=== PATIENT | male | born 1970 | race Caucasian/White ===

== ENCOUNTER 2018-12-20 22:45 | Inpatient (IN) ==
[2018-12-20] MEDS ORDERED: ASPIRIN PO ONE (22:59)
--- NOTE | 2018-12-20 23:51 | EKG Report ---
Test Performed on : 12/20/2018 10:51:09 PM Test Reason : CHEST PAIN Blood Pressure : / mmHG Vent. Rate : 089 BPM Atrial Rate : 089 BPM P-R Int : 126 ms QRS Dur : 080 ms QT Int : 338 ms P-R-T Axes : 039 -22 000 degrees QTc Int : 411 ms Normal sinus rhythm. Voltage criteria for left ventricular hypertrophy Nonspecific ST abnormality Abnormal ECG When compared with ECG of 29-OCT-2008 08:54, Inverted T waves have replaced nonspecific T wave abnormality in Inferior leads Unconfirmed Result
[2018-12-20 23:52] LABS: BASO# 0.02 X1000 (0.0-0.2); BASO% 0.3 % (0.0-0.8); EOS# 0.24 X1000 (0.0-0.7); EOS% 3.2 % (0.0-10.0); HEMATOCRIT 43.9 % (42.0-52.0); LYMPH# 2.75 X1000 (1.2-3.4); LYMPH% 36.7 % (20.5-51.1); MCH 29.9 PG (27-31); MCHC 34.2 g/dL (33-37); MCV 87.5 FL (81-99); MONO# 0.99 X1000 (0.11-0.59); MONO% 13.2 % (1.7-9.3); NEUT% 46.6 % (42.2-75.2); PLT 287 X1000 (130-400); RBC 5.02 XMIL (4.7-6.1); RDW 14.1 % (11.5-14.5)
[2018-12-20 23:59] LABS: INR 0.98; PROTIME 13.1 Seconds (11.0-16.0); PTT 22.2 Seconds (22.3-41.8)
[2018-12-21 00:29] LABS: AGAP 11; ALB/GLOB RATIO 1.5; ALBUMIN 4.2 g/dL (3.5-5.0); ALKALINE PHOSPHATASE 43 U/L (32-122); BUN 21 mg/dL (8-22); CALCIUM 8.6 mg/dL (8.8-10.2); CHLORIDE 107 mmol/L (98-107); COSMO 281; CREATININE 0.7 mg/dL (0.7-1.2); ESTIMATED GFR > 60; GLUCOSE 102 mg/dL (70-104); GOT 41 U/L (10-34); GPT 22 U/L (10-44); POTASSIUM 5.4 mmol/L (3.5-5.1); SODIUM 139 mmol/L (136-145); TCO2 21 mmol/L (25-35); TOTAL BILIRUBIN 0.23 mg/dL (0.20-1.00)
[2018-12-21 00:30] LABS: CK PROFILE 395 U/L (24-204)
[2018-12-21 00:49] LABS: CK INDEX 0.5 (0.0-2.5)
--- NOTE | 2018-12-21 01:46 | PROVIDER DOCUMENTATION ---
This chart was entered by Angelina Chandra Scribe, acting as scribe for Ted Hawk MD. HPI-Chest Pain - General Chief Complaint: Chest Pain Stated Complaint: CHEST PAIN/SOB Time Seen by Provider: 12/20/18 23:32 Source: patient Allergies/Adverse Reactions: Patient Allergies Allergy/AdvReac Type Severity Reaction Status Date / Time No Known Allergies Allergy Verified 12/20/18 23:01 - History of Present Illness-CP Nature of Presenting Problem: 48 yowm c/o cp starting all of a sudden tonight. pain is mild in ed. pt has family hx of VT but has not had a VT. pt has no pcp. denies DM. pt is HTN in room. has had no stress test or echo. pt quit smoking 13 yrs ago but still uses tobacco chew. a&ox3, nontoxic in appearance, and obese. Location: reports: central Chest Pain Radiation: reports: no radiation Severity in ED: mild Onset/Duration: just prior to arrival Timing: improving Context/Activities at Onset: reports: none Similar Symptoms Previously?: No Review of Systems - Adult - REVIEW OF SYSTEMS - ADULT Constitutional: reports: no symptoms reported. denies: fever, fatique, night sweats Eyes: reports: no symptoms reported Ears, Nose, Mouth & Throat: reports: no symptoms reported Cardiovascular: reports: see HPI, chest pain. denies: heart murmur, irregular heart rate, orthopnea Respiratory: reports: no symptoms reported Gastrointestinal: reports: no symptoms reported. denies: diarrhea, nausea, vomiting Genitourinary: reports: no symptoms reported Musculoskeletal: reports: no symptoms reported. denies: back pain, joint pain, neck pain Integumentary: reports: no symptoms reported Neurological: reports: no symptoms reported Psychiatric: reports: no symptoms reported Endocrine: reports: no symptoms reported. denies: change in skin pigment, excessive sweating, goiter Hematologic/Lymphatic: reports: no symptoms reported Allergic/Immunologic: reports: no symptoms reported All Other Systems: Reviewed and Negative Past History - Adult - PAST MEDICAL HISTORY-ADULT Review of Records: reports: Old Records Reviewed, Nursing Assessment Review, Medications Reviewed, Social history reviewed & non-contributory. Major Childhood Illnesses: reports: denies history Cardiovascular: reports: denies history Respiratory: reports: denies history Gastrointestinal: reports: denies history Obstetrical/Gynecological: reports: denies history Genitourinary: reports: denies history Musculoskeletal: reports: denies history Neurological: reports: denies history Endocrine/Immune: reports: denies history Other Conditions: reports: denies history - IMMUNIZATION STATUS Childhood Immunizations: See Nurse Assessment Flu Vaccine: See Nurse Assessment - FAMILY HISTORY Family History: other (VT) - SOCIAL HISTORY Smoking: quit greater than 1 year, chew (1/2 can/daily) Provider spent 3-5 mins advising pt. on dangers of tobacco.: Discussed manners to quit use, and f/u contacts for add'l counseling. Substance Use: none/never Physical Exam-General - PHYSICAL EXAM-ADULT Initial Vital Signs Reviewed: Yes - CONSTITUTIONAL General Appearance: appears well, alert, no apparent distress, obese. negative: lethargic, slow to respond, obtunded - EYES Eyes: PERRL/EOMI, pink conjunctivae - HEAD, EARS, NOSE, MOUTH & THROAT HENMT: normocephalic/atraumatic, moist mucous membranes, normal ENT inspection - NECK Neck: non-tender, full range of motion, supple, normal inspection - RESPIRATORY Respiratory: chest non-tender, lungs clear, normal breath sounds - CARDIOVASCULAR Cardiovascular: normal peripheral pulses, regular rate, rhythm, no edema, no gallop, no JVD, no murmur, other (blood pressure 169/106 2352). negative: JVD, bradycardia, tachycardia - GASTROINTESTINAL (ABDOMEN) Abdominal Exam: normal bowel sounds, non tender, soft - LYMPHATIC Lymphatic: no adenopathy - MUSCULOSKELETAL Back Exam: normal inspection, no CVA tenderness, no vertebral tenderness Extremity: normal range of motion, non-tender, normal inspection, no pedal edema , no calf tenderness, normal capillary refill. negative: abnormal NV exam, calf tenderness, pulse deficit, pedal edema, slow capillary refill Peripheral Pulses: radial (R): 2+, radial (L): 2+ - SKIN Integumentary: normal color, normal turgor, warm/dry. negative: diaphoresis, pallor, swelling - NEUROLOGIC Neurologic: grossly normal, no motor/sensory deficits - PSYCHIATRIC Psych/Mental Status: normal mood/affect, normal thought content, normal thought process, oriented x 3 Progress - PLAN OF CARE/RESULTS Progress/Plan/Lab Results: Vital Signs - 8 hr 12/20/18 22:56 Temperature 98.3 F Pulse Rate 93 H Respiratory Rate 18 Blood Pressure 191/97 O2 Sat by Pulse Oximetry 97 Laboratory Results - last 24 hr 12/20/18 12/20/18 12/20/18 23:38 23:38 23:38 WBC 7.50 RBC 5.02 Hgb 15.0 Hct 43.9 MCV 87.5 MCH 29.9 MCHC 34.2 RDW Std Deviation 14.1 Plt Count 287 MPV 10.0 Immature Gran % (Auto) 0.0 Neut % (Auto) 46.6 Lymph % (Auto) 36.7 [place] % (Auto) 13.2 H Eos % (Auto) 3.2 Baso % (Auto) 0.3 Immature Gran # (Auto) 0.00 Neut # (Auto) 3.50 Lymph # (Auto) 2.75 [place] # (Auto) 0.99 H Eos # (Auto) 0.24 Baso # (Auto) 0.02 PT INR PTT (Actin FS) Sodium 139 Potassium 5.4 H Chloride 107 Carbon Dioxide 21 L Anion Gap 11 BUN 21 Creatinine 0.7 Estimated GFR/1.73 m2 > 60 BUN/Creatinine Ratio 30 Glucose 102 Calculated Osmolality 281 Calcium 8.6 L Total Bilirubin 0.23 AST 41 H ALT 22 Alkaline Phosphatase 43 Creatine Kinase 395 H Creatine Kinase Index 0.5 CK-MB (CK-2) 1.90 Troponin T Wma-[id number]-Yvatzmqdzpz Pept 4543 H Total Protein 7.0 Albumin 4.2 Globulin 2.8 Albumin/Globulin Ratio 1.5 12/20/18 12/20/18 23:38 23:38 WBC RBC Hgb Hct MCV MCH MCHC RDW Std Deviation Plt Count MPV Immature Gran % (Auto) Neut % (Auto) Lymph % (Auto) [place] % (Auto) Eos % (Auto) Baso % (Auto) Immature Gran # (Auto) Neut # (Auto) Lymph # (Auto) [place] # (Auto) Eos # (Auto) Baso # (Auto) PT 13.1 INR 0.98 PTT (Actin FS) 22.2 L Sodium Potassium Chloride Carbon Dioxide Anion Gap BUN Creatinine Estimated GFR/1.73 m2 BUN/Creatinine Ratio Glucose Calculated Osmolality Calcium Total Bilirubin AST ALT Alkaline Phosphatase Creatine Kinase Creatine Kinase Index CK-MB (CK-2) Troponin T < 0.010 Fhw-[id number]-[id number] Pept Total Protein Albumin Globulin Albumin/Globulin Ratio Orders Category Date Time Status Cardiac Monitoring DIRECTED Care 12/20/18 22:59 Active Oxygen Therapy- ED Nursing DIRECTED Care 12/20/18 22:59 Active Saline Loc NOW Care 12/20/18 22:59 Active CHEST-2 VIEWS [RAD] Stat Exams 12/20/18 22:59 Taken CBC WITH ELECTRONIC DIFF [HEME] Stat Lab 12/20/18 23:38 Completed CK PROFILE [SP CHEM] Stat Lab 12/20/18 23:38 Completed COMPREHENSIVE METABOLIC PANEL [CHEM] Stat Lab 12/20/18 23:38 Completed PRO B-NATRIURETIC PEPTIDE Stat Lab 12/20/18 23:38 Completed PROTIME WITH INR [COAG] Stat Lab 12/20/18 23:38 Completed PTT [COAG] Stat Lab 12/20/18 23:38 Completed TROPONIN T Stat Lab 12/20/18 23:38 Completed Aspirin Med 12/20/18 22:59 Discontinued 325 mg PO NOW ONE CP/SOB/Palp >45 yrs of Age Stat Oth 12/20/18 22:59 Ordered EKG [EKG] Stat Ther 12/20/18 22:59 Draft Result Diagrams: 12/20/18 23:38 12/20/18 23:38 - EKG 1 Time of EKG reading by physician:: 22:51 EKG Read and Signed by:: Tde Hawk EKG Interpretation (*Must complete 3 of following elements*): Abnormal Rate: 89 Rhythm: NSR [place]: normal QRS: LVH (voltage criteria for lvh) TN Interval: normal ST Wave: non-specific ST changes (nonspecific st abnormality) Departure - Departure Date of Disposition Decision: 12/21/18 Time of Disposition Decision: 01:45 DIAGNOSIS: Chest pain Qualifiers: Chest pain type: other chest pain Qualified Code(s): R07.89 - Other chest pain; R07.8 - Other chest pain Disposition: ADMITTED INPATIENT 09 Certified Medical Emergency: Emergent Condition: Stable Referrals and Follow-Ups: None,PCP [Primary Care Provider] - - Critical Care Note This patient required my direct & personal management of CC.: No Attestation - Physician/ MANJIT Attestation Patient care was provided by Advanced Practice Provider:: No The physician spent face to face time with patient:: Yes Advanced Practice Provider documentation review:: Supervising physician onsite and consulted in the evaluation and care of this patient. The physician did have a face to face encounter with the patient. This chart was documented by the indicated scribe, (Angelina Chandra, Steve) and accurately reflects the services I performed and decisions made by me, Ted Schmidt MD, as attested by the provider's signature.
[2018-12-21] MEDS: NITROGLYCERIN TOP SCH ×5 (04:25→21:09)
[2018-12-21] MEDS ORDERED: ZOFRAN IV PRN (04:55)
[2018-12-21] MEDS ORDERED: D50W SYRINGE IV ONE (05:18)
[2018-12-21] MEDS ORDERED: ALBUTEROL 0.5% INH CONC FOR HYPERKALEMIA INH ONE (05:18)
[2018-12-21] MEDS ORDERED: CALCIUM GLUCONATE 1 GM in NS 50 ML IV ONE (05:18)
[2018-12-21] MEDS ORDERED: HUMULIN R IV ONE (05:19)
[2018-12-21] MEDS: LOVENOX SUBQ SCH (05:41)
[2018-12-21 06:23] LABS: CK INDEX 0.6 (0.0-2.5); CK-MB 1.63 ng/mL (0.0-5.0)
--- NOTE | 2018-12-21 06:42 | HISTORY AND PHYSICAL ---
CHIEF COMPLAINT: Chest pain. HISTORY OF PRESENT ILLNESS: Mr. Richards is a 48-year-old male with no real medical history, however, he admits he does not really go to the doctor to be diagnosed. Comes in last night after having chest pain with a sudden onset that initially went away and then came back worse. It was left-sided chest pain that radiated into his neck and into the top of his arm so he told his they needed to come into the emergency room. 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 Also had a mildly elevated potassium. All other labs were normal. Chest x-ray also was grossly normal. He will be admitted related to family history. He was also hypertensive in the ER with a systolic almost 200. At any rate, he will be placed on observation status. PAST MEDICAL HISTORY: Denies. PREVIOUS SURGICAL HISTORY: Denies. SOCIAL HISTORY: He does lawn care. Lives at home with his . Stopped smoking 13 years ago. He occasionally uses chewing tobacco. Uses occasional alcohol. No illicit drugs. FAMILY HISTORY: Strong family history of coronary artery disease with myocardial infarction, both in his father and mother, and grandparents. ALLERGIES: No known drug allergies. HOME MEDICATIONS: No home medications. REVIEW OF SYSTEMS: Fourteen-point review of systems conducted with the patient. Pertinent positives listed above in the HPI. He denied any shortness of breath, nausea, vomiting or diaphoresis with the event. All other systems reviewed and found to be negative. PHYSICAL EXAMINATION: VITAL SIGNS: Temperature 98.2, pulse 67, respirations 20, blood pressure 138/86, oxygen saturation 96% on room air. GENERAL: Pleasant 48-year-old male lying in the ER stretcher, answers all questions appropriately, is alert and oriented times 3. HEENT: Head is atraumatic, normocephalic. Pupils equal, round, reactive to light. Extraocular eye movement is intact. Sclerae are anicteric. Conjunctiva is pink. Oral mucosa is moist. NECK: Supple. No JVD. No thyromegaly. Trachea is midline. No cervical lymphadenopathy. CARDIAC: S1, S2 appreciated. No murmurs, gallops or rubs. LUNGS: Clear to auscultation bilaterally. No rhonchi, wheezes or rales. Symmetrical rise and fall with respirations. ABDOMEN: Soft, nondistended, nontender. Bowel sounds present all 4 quadrants, normoactive. No pulsatile mass. No organomegaly. EXTREMITIES: No clubbing, cyanosis or edema. Two-plus pedal pulses bilaterally. GENITOURINARY: No bladder distention. Patient voids. Otherwise deferred. NEUROLOGIC: Alert and oriented times 3. No focal motor deficits. Otherwise nonfocal examination. DIAGNOSTIC DATA: EKG shows normal sinus rhythm, possibly met voltage criteria for LVH. Rate was 89, nonspecific ST abnormality. Chest x-ray: No infiltrates, no edema. LABORATORY DATA: CBC within normal limits. Chemistry panel grossly normal other than a potassium of 5.4. CK 395. Troponin less than 0.010. ProBNP 4543. ASSESSMENT AND PLAN: 1. Chest pain. Rule out acute myocardial infarction. Trend cardiac enzymes. Repeat EKG this morning. Stress test this morning. The patient will be NPO. 2. Hypertension. Will give nitroglycerin 1 inch topically q.6. Continue to monitor blood pressure. Patient may need to be sent home with an antihypertensive. 3. Hyperkalemia. Will treat and recheck. It was mildly elevated at 5.4. 4. Nicotine use. Patient has cut back. He stopped smoking 12 years ago. He occasionally uses chewing tobacco. Stated that he does not plan to quit at this time. Further recommendations per patient clinical course. Dictated by ANAY Buenrostro for Murtaza Rouse MD cc: ANAY Buenrostro MD
--- NOTE | 2018-12-21 07:07 | EKG Report ---
Test Performed on : 12/21/2018 06:46:53 AM Test Reason : cp Blood Pressure : / mmHG Vent. Rate : 107 BPM Atrial Rate : 107 BPM P-R Int : 128 ms QRS Dur : 082 ms QT Int : 338 ms P-R-T Axes : 048 -07 011 degrees QTc Int : 451 ms Sinus tachycardia. Moderate voltage criteria for LVH, may be normal variant Borderline ECG Confirmed by Juan SIMPSON, Vicente Josue ([id number]) on 12/21/2018 10:06:03 PM
--- NOTE | 2018-12-21 07:23 | Diag Imaging Result Doc PS360 ---
EXAM: CHEST-2 VIEWS 12/20/2018 HISTORY: chest pain TECHNIQUE: PA and lateral chest COMMENT: There is no evidence of acute cardiac or pulmonary disease. There are no previous studies. IMPRESSION: No evidence of acute disease. Electronically signed by Oleg Cook 12/21/2018 7:20 AM
[2018-12-21] MEDS: TYLENOL PO PRN ×2 (07:27→16:54)
[2018-12-21] MEDS: ASPIRIN EC PO SCH (09:26)
[2018-12-21] MEDS: PRILOSEC PO SCH (09:28)
--- NOTE | 2018-12-21 12:16 | PROGRESS NOTE ---
DATE: 12/21/2018 SUBJECTIVE: This morning Mr. Richards refers to be doing remarkably okay. No more chest pain. He just feels some soreness. OBJECTIVE: Vital Signs: Blood pressure 124/66, pulse of 95, respirations 14, and temperature 98 degrees. Patient was saturating 97% on room air. General: Mr. Richards is a 48-year-old gentleman. He is in bed no distress. Mucosa is pink and moist. Anicteric. Acyanotic. Neck: Supple. Chest: Clear to auscultation. No crepitations. No rhonchi. Cardiovascular: Regular rate and rhythm. Abdomen: Soft and nontender. Bowel sounds are present. Extremities: No pedal edema. P[employer]IL[employer] RELINER: Patient is awake, alert, and oriented. Musculoskeletal: No costochondral joints. LABORATORY DATA: Reviewed. CBC is completely unremarkable. Repeat potassium is 2.9. HDL is 34 with total cholesterol of 198, LDL is 154. ASSESSMENT: 1. Chest pain which is concerning for unstable angina/coronary artery disease. So far, patient's troponin's 2 times have been unremarkable. EKG has also been unremarkable for any acute ST-segment abnormality. At least, ME has been ruled out. We are pending the stress test and go from there. 2. Tobacco use and abuse in the past. 3. Elevated pro B. The patient does not show any signs of any congestion. Chest x-ray did not show any pulmonary edema or any acute disease. We are going to do an echocardiogram to rule out any potential cardiomyopathy. cc: Frank Du MD
[2018-12-21 14:38] LABS: CK INDEX 0.7 (0.0-2.5); CK-MB 1.61 ng/mL (0.0-5.0)
[2018-12-21 15:53] LABS: UR AMPHETAMINES QUAL NONE DETECTED (NONE DETECT); UR BARBITUATES QUAL NONE DETECTED (NONE DETECT); UR BENZODIAZEPIN QUAL NONE DETECTED (NONE DETECT); UR CANNABINOIDS QUAL NONE DETECTED (NONE DETECT); UR COCAINE QUAL NONE DETECTED (NONE DETECT); UR METHADONE QUAL NONE DETECTED (NONE DETECT); UR OPIATES QUAL NONE DETECTED (NONE DETECT); UR OXYCODONE QUAL NONE DETECTED (NONE DETECT); UR PCP QUAL NONE DETECTED (NONE DETECT)
--- NOTE | 2018-12-21 16:02 | Diag Imaging Result Document ---
PROCEDURE NAME: MYOCARDIAL PERF SCAN, STR/REST - 12/21/2018 REASON FOR THE STUDY: Chest pain. DESCRIPTION: The patient came into the nuclear laboratory, received resting injection of technetium 99 sestamibi 14.4 mCi. Multiple tomographic views of the cardiac structures were obtained at rest. Subsequently, the patient underwent a treadmill exercise protocol. At peak exercise, injected with technetium 99 sestamibi 44.1 mCi. Multiple tomographic views of the cardiac structures were obtained following the completion of the exercise protocol. SUMMARY OF THE ELECTROCARDIOGRAPHIC PORTION OF THE STUDY: Resting ECG shows sinus rhythm, rate 73 beats per minute. Resting blood pressure 120/78. Resting ECG shows no significant abnormality. The patient walked on the treadmill for a total time of 9 minutes. He completed 3 stages of Oswald protocol. He achieved a maximum heart rate of 150 beats per minute representing 86% of maximum predicted heart rate for his age. Maximum blood pressure 180/105. Maximum workload is 9.9 METS. Peak exercise ECG shows sinus tachycardia without any ischemic ST changes. The test was terminated due to fatigue and achievement of adequate heart rate. He was injected with radiotracer 1 minute prior to determination of exercise. Following the completion of the test, the heart rate and blood pressure returned back to baseline. The patient reported some mild dyspnea with mild wheezing heard at peak exercise. This improved with rest. Exercise capacity decreased by a factor of 8%. Blood pressure response was physiologic. The level of stress based on double product of peak heart rate times peak blood pressure is adequate at 27,000. SUMMARY OF THE MYOCARDIAL PERFUSION PORTION OF THE STUDY: Poststress tomographic views of the left ventricle showed normal homogeneous distribution of radiotracer throughout the entire left ventricular myocardium. There is no convincing evidence of any postexercise defect. The rest images showed normal perfusion. Polar plots revealed the same. There is no convincing evidence of any inducible ischemia nor myocardial scar. Gated SPECT shows normal ejection fraction of 76% with normal ventricular volumes, no wall motion abnormality. Lung/heart ratio is somewhat elevated on the poststress images at 0.44. The TID is normal at 0.85. SUMMARY: This study shows: 1. Normal electrocardiographic response to exercise. The patient achieved 86% of maximum predicted heart rate for his age. Workload 9.9 METS. Physiologic blood pressure response. 2. Normal poststress myocardial perfusion scan. There is no scintigraphic evidence of effort- induced myocardial ischemia. 3. Normal left ventricular systolic function, ejection fraction estimated at 76% with normal ventricular volumes, no wall motion abnormality. This study represents a low risk for ischemic events. cc: MD Jean Paul Reyes CRNP
--- NOTE | 2018-12-21 18:58 | ECHO REPORT ---
ORDER DATE: 12/21/2018 INTERPRETING PHYSICIAN: Denis Luna MD. CLINICAL INDICATIONS: Chest pain. CHF. REQUESTING PRACTITIONER: Dr. Du. M-MODE MEASUREMENTS: Left ventricle end diastole: 5.6 cm. Left ventricle end systole: 3.4 cm. Posterior wall: 0.9 cm. Interventricular septum: 0.9 cm. Left atrium: 3.4 cm. Aortic diameter: 3.4 cm. SUMMARY OF 2-DIMENSIONAL IMAGIN. The left ventricular function is normal. Ejection fraction of 56%. The chamber appears to be mildly enlarged. No wall motion abnormality is noted. 2. The aortic valve looks normal. Color flow mapping unremarkable. 3. The pulmonic valve looks normal. Color flow mapping unremarkable. 4. The mitral valve looks normal. Color flow mapping unremarkable. 5. Pulsed wave Doppler of mitral inflow is normal. 6. Tissue Doppler of septal and lateral mitral annulus averages 8 cm. 7. There is no diastolic dysfunction. 8. The tricuspid valve looks normal. Color flow mapping unremarkable. 9. The inferior vena cava is not dilated. 10.Pulmonary pressure is normal. 11. There is no pericardial effusion, no mass, and no thrombus. SUMMARY: This study appears to be grossly within normal limits. Clinical correlation is recommended. cc: MD Frank Reyes MD
[2018-12-21 22:55] LABS: CK INDEX 0.4 (0.0-2.5); CK-MB 1.8 ng/mL (0.0-5.0)
[2018-12-22] MEDS: NITROGLYCERIN TOP SCH ×2 (02:52→08:59)
[2018-12-22] MEDS: TYLENOL PO PRN ×2 (02:52→08:59)
[2018-12-22] MEDS: LOVENOX SUBQ SCH (05:52)
[2018-12-22] MEDS: PRILOSEC PO SCH ×2 (05:52→06:04)
[2018-12-22] MEDS: ASPIRIN EC PO SCH (08:58)
[2018-12-22 12:13] VITALS: BP 139/85
--- NOTE | 2018-12-23 09:53 | DISCHARGE SUMMARY ---
ADMISSION DATE: 12/21/2018 DISCHARGE DATE: 12/22/2018 DISPOSITION: Home. FOLLOWUP: The patient's PCP. CONSULTATION DURING THIS ADMISSION: None. IMAGING STUDIES OF SIGNIFICANCE: 1. A chest x-ray was negative for any acute disease. 2. A myocardial perfusion scan was normal. No evidence of ischemia. 3. Echocardiogram showed ejection fraction of 56%, mildly enlarged chambers, otherwise unremarkable. ADMISSION DIAGNOSES: 1. Chest pain. 2. Hypertension. 3. Hyperkalemia. 4. Nicotine use. DIAGNOSES AT THE TIME OF DISCHARGE: 1. Atypical chest pain with normal cardiac markers, normal EKG and normal stress and echo, presumably noncardiac related. 2. Tobacco use and abuse. Patient has been counseled. 3. Volume depletion on presentation, improved. 4. Gastroesophageal reflux disease. The patient is on PPI and has been advised to follow up with GI. PRESENTING COMPLAINT: Chest pain. HISTORY OF PRESENT COMPLAINT: Mr. Richards is a 48-year-old male who presented to the emergency department because of chest pain. He has a history of previous tobacco use but apparently stopped about 13 years ago. He has a lot of family members who had coronary artery disease, so he was admitted for cardiac workup. HOSPITAL COURSE: Mr. Richards referred to have improved from chest pain. Most of his evaluations were completely negative including troponins, EKGs, stress test and echocardiogram. He did, however, say that he also has some epigastric pain, which we think it could be all related to GERD. He was started on PPI, and this morning he feels a lot better. He has been advised to follow up with GI and also continue with regular lifestyle modification changes. DISCHARGE INSTRUCTIONS: All the discharge instructions were discussed with Mr. Richards. He voiced understanding. and daughter were at the bedside at the time of the encounter. Time spent for discharge is 38 minutes. cc: MD NGA Dugan
== END 2018-12-22 14:37 | disposition home or self-care (01) | DRG 313 ==
LOC: ED 22:45 → 1N 22:45 → OBSVTOIN 12-21 04:46 → SUATTDRO 12-21 04:46
PROVIDERS: ATTEND Internal Medicine